=== PATIENT | male | born 1970 | race Caucasian/White ===

== ENCOUNTER → 2019-01-27 | Outpatient (CLI) | payer OTHER ==
--- NOTE | 2019-01-27 14:39 | 2DMMODE ---
[place] [id number] 2 D/M-MODE ECHOCARDIOGRAM Name: BRE LEONE Room: [facility]#: [id number] Admission: 01/27/19 Attend Phys: ALAN KIRAN Discharge: Date of : 70 Date of Service: 01/27/19 1438 Report #: [id number] THIS REPORT FOR: //name// APPROVED REPORT Study performed: 01/27/2019 07:57:44 EXAM: Comprehensive 2D, Doppler, and color-flow Echocardiogram Patient Location: Out-Patient Status: routine BSA: 2.11 HR: 65 bpm BP: 115/65 mmHg Rhythm: NSR Other Information Study Quality: Good Indications Murmur 2D Dimensions IVSd: 11.87 (7-11mm) LVOT Diam: 20.44 (18-24mm) LVDd: 45.34 mm PWd: 8.41 (7-11mm) Ascending Ao: 30.88 (22-36mm) LVDs: 24.68 (25-40mm) Aortic Root: 28.33 mm Volumes Left Atrial Volume (Systole) LA ESV Index: 16.50 mL/m2 Aortic Valve AoV Peak Marvin.: 2.68 m/s AO Peak Gr.: 28.77 mmHg LVOT Max P.26 mmHg AO Mean Gr.: 16.15 mmHg LVOT Mean P.20 mmHg LVOT Max V: 0.75 m/s AO V2 VTI: 56.99 cm LVOT Mean V: 0.51 m/s HARI (VTI): 1.14 cm2 LVOT V1 VTI: 19.75 cm Mitral Valve E/A Ratio: 1.06 MV Decel. Time: 207.19 ms MV E Max Marvin.: 0.70 m/[place] [id number] 2 D/M-MODE ECHOCARDIOGRAM Name: BRE LEONE Room: [facility]#: [id number] Admission: 01/27/19 Attend Phys: ALAN KIRAN Discharge: Date of : 70 Date of Service: 01/27/19 1438 Report #: [id number] MV PHT: 60.09 ms MVA (PHT): 3.66 cm2 TDI E/Lateral E': 5.38 E/Medial E': 7.00 Medial E' Marvin.: 0.10 m/s Lateral E' Marvin.: 0.13 m/s Pulmonary Valve PV Peak Marvin.: 0.90 m/s PV Peak Gr.: 3.21 mmHg Tricuspid Valve RAP Estimate: 5.00 mmHg TR Peak Gr.: 17.47 mmHg RVSP: 22.00 mmHg PA Pressure: 22.00 mmHg Left Ventricle The left ventricle is normal size. There is normal LV segmental wall motion. There is normal left ventricular wall thickness. Left ventricular systolic function is normal. LVEF is 60-65%. The left ventricular diastolic function is normal. Right Ventricle The right ventricle is normal size. The right ventricular systolic function is normal. Atria The left atrium size is normal. The right atrium size is normal. Aortic Valve Aortic valve is calcified. Aortic valve is possibly bicuspid. No aortic regurgitation is present. Moderate aortic stenosis. Mitral Valve The mitral valve is normal in structure. There is no mitral valve regurgitation noted. No evidence of mitral valve stenosis. Tricuspid Valve The tricuspid valve is normal in structure. Trace tricuspid regurgitation. No pulmonary hypertension. Pulmonic Valve The pulmonary valve is normal in structure. There is no [place]mon[place] [address] 2 D/M-MODE ECHOCARDIOGRAM Name: BRE LEONE Room: [facility]#: [id number] Admission: 01/27/19 Attend Phys: ALAN KIRAN Discharge: Date of : 70 Date of Service: 01/27/19 1438 Report #: [id number] Great Vessels The aortic root is normal in size. IVC is normal in size and collapses >50% with inspiration. Pericardium There is no pericardial effusion. <Conclusion> The left ventricle is normal size. There is normal left ventricular wall thickness. Left ventricular systolic function is normal. LVEF is 60-65%. The left ventricular diastolic function is normal. Aortic valve is calcified. Aortic valve is possibly bicuspid. Moderate aortic stenosis. Trace tricuspid regurgitation. No pulmonary hypertension. IVC is normal in size and collapses >50% with inspiration. <ELECTRONICALLY SIGNED> By: Srikanth De Los Santos MD, FACC 01/27/19 1438 1438 1438 Srikanth De Los Santos MD, FACC /INF
== END ==
LOC: M.CRD 07:42
DX: I35.8 Other nonrheumatic aortic valve disorders (principal)